=== PATIENT | female | born 1960 | race Hispanic/Latino ===

== ENCOUNTER 2021-10-18 16:37 | Inpatient (IN) | payer SELFPAY ==
[2021-10-18] MEDS ORDERED: Aspirin 325 MG TAB ONE (17:25)
[2021-10-18 17:44] LABS: #Eosinphils 0.1 10x3/uL (0.0-0.5); #Monocytes 0.5 10x3/uL (0.0-1.1); #Neutrophils 6.4 10x3/uL (1.5-8.4); %Basophils 0.3 % (0.0-2.0); %Eosinophils 1.4 % (0.0-6.0); %Lymphocytes 23.6 % (18.0-47.0); %Monocytes 4.9 % (0.0-10.0); Hemoglobin 12.8 g/dL (12.0-15.5); Mean Corpuscular Hemoglobin 30.6 pg (27.0-33.0); Mean Corpuscular Volume 95.7 fl (81.6-98.3); Mean Platelet Volume 10.2 fl (7.4-10.4); Platelet Count 234 10x3/uL (150-450); RBC Distribution Width 13.3 % (11.5-14.5); Red Blood Cell (RBC) Count 4.18 10x6/uL (3.90-5.03); White Blood Cell (WBC) Count 9.2 10x3/uL (3.5-10.5)
[2021-10-18 18:03] LABS: ALT (SGPT) 37 U/L (8-55); AST (SGOT) 27 U/L (5-34); Albumin 3.7 g/dL (3.4-4.8); Alkaline Phosphatase 238 U/L (40-110); Anion Gap 11 mmol/L (10-20); BUN (Urea Nitrogen) 11 mg/dL (9.8-20.1); Bilirubin, Total 2.3 mg/dL (0.2-1.2); CK (CPK) 49 U/L (29-168); Calc. Creatinine Clearance 0 mL/min (70-130); Calcium 8.8 mg/dL (7.8-10.44); Carbon Dioxide 25 mmol/L (23-31); Chloride 107 mmol/L (98-107); Globulin 3.2 g/dL (2.4-3.5); Glucose 115 mg/dL (80-115); Lipase 19 U/L (8-78); Potassium 4.2 mmol/L (3.5-5.1); Protein, Total 6.9 g/dL (5.8-8.1); Sodium 139 mmol/L (136-145)
[2021-10-18] MEDS ORDERED: Diltiazem 125 MG in Sodium Chloride 0.9% 100 ML IVPB SCH ×2 (18:45→22:45)
[2021-10-18] MEDS ORDERED: Furosemide 40 MG/4 ML VIAL ONE (19:59)
[2021-10-18 22:36] VITALS: BMI 43.2
[2021-10-18] MEDS ORDERED: Furosemide 40 MG/4 ML VIAL SLOW IVP SCH (22:45)
[2021-10-18 23:32] LABS: Cardiac Risk 3.6 (Less than 4.5)
[2021-10-19 00:10] LABS: SARS-CoV-2 NAA Rapid Test Not Detected (NotDetected)
[2021-10-19 04:14] LABS: Anion Gap 13 mmol/L (10-20); BUN (Urea Nitrogen) 12 mg/dL (9.8-20.1); Calc. Creatinine Clearance 104 mL/min (70-130); Calcium 8.9 mg/dL (7.8-10.44); Carbon Dioxide 25 mmol/L (23-31); Chloride 105 mmol/L (98-107); Glucose 113 mg/dL (80-115); Magnesium 2.2 mg/dL (1.6-2.6); Potassium 3.5 mmol/L (3.5-5.1); Sodium 139 mmol/L (136-145)
[2021-10-19 04:18] LABS: Troponin I Less than 0.010 ng/mL (< 0.028)
[2021-10-19 04:29] LABS: #Eosinphils 0.1 10x3/uL (0.0-0.5); #Monocytes 0.7 10x3/uL (0.0-1.1); #Neutrophils 7.5 10x3/uL (1.5-8.4); %Basophils 0.3 % (0.0-2.0); %Eosinophils 1.1 % (0.0-6.0); %Lymphocytes 21.3 % (18.0-47.0); %Monocytes 6.5 % (0.0-10.0); %Neutrophils 70.1 % (40.0-75.0); Hemoglobin 13.2 g/dL (12.0-15.5); Mean Corpuscular HGB CONC 32.5 g/dL (32.0-36.0); Mean Corpuscular Hemoglobin 30.7 pg (27.0-33.0); Mean Corpuscular Volume 94.4 fl (81.6-98.3); Mean Platelet Volume 10.2 fl (7.4-10.4); Platelet Count 236 10x3/uL (150-450); RBC Distribution Width 13.6 % (11.5-14.5); White Blood Cell (WBC) Count 10.6 10x3/uL (3.5-10.5)
[2021-10-19] MEDS: Levothyroxine Sodium 100 MCG TAB PO SCH (06:53)
[2021-10-19] MEDS ORDERED: Furosemide 40 MG TAB PO SCH (09:00)
[2021-10-19] MEDS ORDERED: Spironolactone 25 MG TAB PO SCH (09:00)
[2021-10-19] MEDS ORDERED: Losartan Potassium 50 MG TAB PO SCH (09:00)
[2021-10-19] MEDS ORDERED: Amiodarone 200 MG TAB PO SCH (09:00)
[2021-10-19] MEDS: Aspirin 81 mg Enteric Coated Tablet PO SCH (09:50)
[2021-10-19] MEDS: Calcitriol 0.25 MCG CAP PO SCH (09:51)
[2021-10-19] MEDS: Atorvastatin Calcium 20 MG TAB PO SCH (09:51)
[2021-10-19] MEDS: Rivaroxaban 10 MG TAB PO SCH (09:52)
[2021-10-19] MEDS ORDERED: Carvedilol 3.125 MG TAB PO SCH ×2 (11:45→21:00)
[2021-10-19] MEDS ORDERED: Diltiazem 125 MG in Sodium Chloride 0.9% 100 ML IVPB SCH (11:45)
[2021-10-19] MEDS ORDERED: Furosemide 40 MG/4 ML VIAL SLOW IVP SCH (18:00)
[2021-10-19] MEDS: Amiodarone 200 MG TAB PO SCH (20:19)
[2021-10-19] MEDS ORDERED: Carvedilol 6.25 MG TAB PO SCH (21:00)
[2021-10-20 04:18] LABS: Anion Gap 13 mmol/L (10-20); BUN (Urea Nitrogen) 18 mg/dL (9.8-20.1); Calc. Creatinine Clearance 100 mL/min (70-130); Calcium 8.9 mg/dL (7.8-10.44); Carbon Dioxide 27 mmol/L (23-31); Chloride 102 mmol/L (98-107); Glucose 104 mg/dL (80-115); Potassium 3.7 mmol/L (3.5-5.1); Sodium 138 mmol/L (136-145)
[2021-10-20] MEDS: Levothyroxine Sodium 100 MCG TAB PO SCH (05:42)
[2021-10-20] MEDS: Carvedilol 6.25 MG TAB PO SCH ×2 (08:23→15:12)
[2021-10-20] MEDS: Amiodarone 200 MG TAB PO SCH ×3 (08:23→20:10)
[2021-10-20] MEDS: Aspirin 81 mg Enteric Coated Tablet PO SCH (08:23)
[2021-10-20] MEDS: Calcitriol 0.25 MCG CAP PO SCH (08:23)
[2021-10-20] MEDS: Rivaroxaban 10 MG TAB PO SCH (08:23)
[2021-10-20] MEDS: Atorvastatin Calcium 20 MG TAB PO SCH (08:23)
[2021-10-20] MEDS ORDERED: Furosemide 40 MG/4 ML VIAL SLOW IVP SCH (09:00)
[2021-10-20] MEDS: Furosemide 20 MG TAB PO SCH (15:12)
[2021-10-21] MEDS: Levothyroxine Sodium 100 MCG TAB PO SCH (05:42)
[2021-10-21] MEDS: Atorvastatin Calcium 20 MG TAB PO SCH (09:43)
[2021-10-21] MEDS: Rivaroxaban 10 MG TAB PO SCH (09:44)
[2021-10-21] MEDS: Aspirin 81 mg Enteric Coated Tablet PO SCH (09:44)
[2021-10-21] MEDS: Calcitriol 0.25 MCG CAP PO SCH (09:44)
[2021-10-21] MEDS: Carvedilol 6.25 MG TAB PO SCH ×2 (09:44→14:47)
[2021-10-21] MEDS: Amiodarone 200 MG TAB PO SCH ×2 (09:44→14:47)
[2021-10-21] MEDS: Furosemide 20 MG TAB PO SCH ×2 (09:44→14:47)
[2021-10-21 12:18] VITALS: BP 110/71; TEMP 97.8
== END 2021-10-21 15:45 | disposition home or self-care (01) | DRG 308 ==
LOC: CSHERS 16:37 → OBSVTOIN 22:09 → CSHTELE 22:09
PROVIDERS: ADMIT Family Medicine; ATTEND Internal Medicine
DX: I48.19 Other persistent atrial fibrillation (principal); I50.43 Acute on chronic combined systolic (congestive) and diastolic (congestive) heart failure; Z68.41 Body mass index [BMI] 40.0-44.9, adult; E66.9 Obesity, unspecified; E03.9 Hypothyroidism, unspecified; I35.0 Nonrheumatic aortic (valve) stenosis; J84.10 Pulmonary fibrosis, unspecified; I11.0 Hypertensive heart disease with heart failure; Z20.822 Contact with and (suspected) exposure to COVID-19; Z79.899 Other long term (current) drug therapy; Z90.710 Acquired absence of both cervix and uterus
CPT/HCPCS: 71275; 80048; 80053; 80061; 82550; 83690; 83735; 83880; 84439; 84443; 84484; 85025; 87633; 93005; 93010; 93306; 94760; 96365; 96366; 96374; 96375; 96376; 99292; G0378; J1940; J3490; U0002